=== PATIENT | male | born 1995 | race Two or more races ===

== ENCOUNTER 2020-06-11 10:11 | Emergency (ER) | payer BC, OTHER ==
--- NOTE | 2020-06-11 10:35 | EDM.PDOC ---
ED HPI GENERAL MEDICAL PROBLEM - General Chief Complaint: Upper Extremity Injury/Pain Stated Complaint: LT ARM INJURY Time Seen by Provider: 06/11/20 10:34 Source of Information: Reports: Patient, RN Notes Reviewed - History of Present Illness INITIAL COMMENTS - FREE TEXT/NARRATIVE: 25 yr old male had a nail gun discharge a nail into L wrist yesterday, radial aspect. Today he has increased pain, also has mild numbness and tingling of L thumb, index and middle fingers, pain with motion. Left Lower Arm Pain Score (Numeric/FACES): 9 - Related Data Allergies Allergy/AdvReac Type Severity Reaction Status Date / Time No Known Allergies Allergy Verified 06/11/20 10:20 Home Meds: Home Meds Acetaminophen/HYDROcodone [[place] 325-5 MG] 1 tab PO Q6H PRN #10 tablet 06/11/20 [Rx] cephALEXin [Cephalexin] 500 mg PO Q6HR #20 capsule 06/11/20 [Rx] Past Medical History - Past Surgical History GI Surgical History: Reports: Appendectomy Social & Family History - Family History Family Medical History: Noncontributory - Tobacco Use Tobacco Use Status *Q: Current Some Day Tobacco User Years of Tobacco use: 1 Packs/Tins Daily: 1 - Caffeine Use Caffeine Use: Reports: Coffee, Energy Drinks - Recreational Drug Use Recreational Drug Use: No Review of Systems - Review of Systems Review Of Systems: See Below Constitutional: Denies: Chills, Fever Respiratory: Reports: No Symptoms Cardiovascular: Reports: No Symptoms Musculoskeletal: Reports: Other (wrist pain) Skin: Reports: Other (mild swelling, very mild localized erythema area of injury) Neurological: Reports: Numbness (mild). Denies: Weakness ED EXAM, GENERAL - Physical Exam Exam: See Below General Appearance: Alert, No Apparent Distress Head: Atraumatic Neck: Supple Respiratory/Chest: No Respiratory Distress Extremities: Other (puncture wound visible l distal forearm just proxiamal to wrist. Very mild swelling and localized tenderness, slight localized erythema) Neurological: No Motor/Sensory Deficits Skin Exam: Warm, Dry Course - Vital Signs Last Recorded V/S: Last Vital Signs Temp 97.7 F 06/11/20 10:18 Pulse 63 06/11/20 10:18 Resp 18 06/11/20 10:18 BP 124/75 06/11/20 10:18 Pulse Ox 94 L 06/11/20 10:18 - Orders/Labs/Meds Meds: Medications Discontinued Medications Generic Name Dose Route Start Last Admin Trade Name Freq PRN Reason Stop Dose Admin Diphtheria/Tetanus/Acell Pertussis 0.5 ml 06/11/20 10:42 06/11/20 10:55 Adacel IM 06/11/20 10:43 0.5 ml .ONCE ONE Administration Influenza Virus Vaccine 60 mcg 06/11/20 10:45 06/11/20 10:56 Fluzone Quad Syringe IM 06/11/20 10:46 60 mcg .ONCE ONE Administration - Re-Assessments/Exams Free Text/Narrative Re-Assessment/Exam: 06/19/20 07:35 X rays. no fx Departure - Departure Time of Disposition: 11:41 Disposition: Home, Self-Care 01 Condition: Fair Clinical Impression: Puncture wound - Discharge Information Prescriptions: cephALEXin [Cephalexin] 500 mg PO Q6HR #20 capsule Acetaminophen/HYDROcodone [[place] 325-5 MG] 1 tab PO Q6H PRN #10 tablet PRN Reason: Pain Instructions: Puncture Wound, Wound Care, Adult Referrals: PCP,None [Primary Care Provider] - Forms: ED Department Discharge, ED Return to Work/School Form Additional Instructions: Ice packs as needed for swelling. Cephalexin 500 mg 4 times daily for 5 days or until gone. Alternate tylenol and motrin as needed for pain or alternate motrin and hydrocodone if needed for severe pain. Do not drive or work when taking hydrocodone. Prescriptions have been sent electronically to [facility] the [facility]. Follow up clinic in about 1 week for recheck if not much better within 5 to 7 days as expected. Call [phone] for appointment as needed. Sepsis Event Note (ED) - Evaluation Sepsis Screening Result: No Definite Risk
[2020-06-11] MEDS ORDERED: Diphtheria,Pertussis(Acell),Tetanus Vaccine 0.5 ML Syringe IM ONE (10:42)
[2020-06-11] MEDS ORDERED: FLU VACC QS2020-21(6MOS UP)/PF 60 MCG/0.5 ML SYRINGE IM ONE (10:45)
== END 2020-06-11 12:06 | disposition home or self-care (01) ==
LOC: EDBD 10:11 → JD.ED 10:11
DX: S51.832A Puncture wound without foreign body of left forearm, initial encounter (principal); Z23 Encounter for immunization; F17.210 Nicotine dependence, cigarettes, uncomplicated; W29.4XXA Contact with nail gun, initial encounter
CPT/HCPCS: 73090-LT; 90471; 90686; 90715; 99283; 99284-25; G0008